=== PATIENT | female | born 1960 | race Caucasian/White ===

== ENCOUNTER 2025-06-09 11:08 | Outpatient (CLI) | payer MEDICAID ==
--- NOTE | 2025-06-09 14:17 | RADIOLOGY REPORT ---
EXAM: MR MRI LUMBAR SPINE CLINICAL HISTORY: WEDGE COMPRESSION FRACTURE OF UNSP LUMBAR VERTEBRA, INIT COMPARISON: None TECHNIQUE: MRI imaging of the lumbar was performed on a MRI imaging system without intravenous contrast. FINDINGS: FINDINGS GENERAL Multilevel disc degeneration. Alignment: No spondylolisthesis identified. Vertebrae: Compression deformities of the vertebral bodies: moderate at L2 (37%), L4 (26%), L5 (38%). Conus: Conus medullaris terminates at the L1 level. T12-L1: Disc desiccation. No spinal canal or neural foraminal stenosis. The facet joints are normal. L1-2: Disc desiccation and disc bulge. Mild right lateral recess stenosis. Mild left and severe right foraminal stenosis with potential right exiting L1 nerve root compression. Facet arthrosis. L2-3: Disc desiccation and disc bulge. No spinal canal stenosis. Mild left foraminal stenosis. Facet arthrosis. L3-4: Disc desiccation. No spinal canal stenosis. Mild bilateral foraminal stenosis. Facet arthrosis. L4-5: Disc desiccation and 5 mm disc bulge. Mild bilateral lateral recess stenosis. Mild bilateral foraminal stenosis. Facet arthrosis. L5-S1: Disc desiccation and disc bulge. No spinal canal stenosis. Mild right foraminal stenosis. Facet arthrosis. IMPRESSION: 1. Multilevel disc degeneration. Compression deformities: moderate at L2 (37%), L4 (26%), L5 (38%). Multilevel lateral recess stenosis, most pronounced and mild at L4-L5. Multilevel foraminal stenosis, most pronounced and severe at L1-L2 with potential right exiting L1 nerve root compression.
== END 2025-06-09 23:59 | disposition home or self-care (01) ==
LOC: MRI02 11:08
PROVIDERS: ATTEND General Practice
DX: S32.000A Wedge compression fracture of unspecified lumbar vertebra, initial encounter for closed fracture (principal); M51.17 Intervertebral disc disorders with radiculopathy, lumbosacral region; M47.27 Other spondylosis with radiculopathy, lumbosacral region; M48.07 Spinal stenosis, lumbosacral region; X58.XXXA Exposure to other specified factors, initial encounter; Y93.89 Activity, other specified; Y92.89 Other specified places as the place of occurrence of the external cause; Y99.8 Other external cause status
CPT/HCPCS: 72148